=== PATIENT | female | born 1990 | race Two or more races ===

== ENCOUNTER 2023-08-20 11:48 | Emergency (ER) | payer OTHER ==
[~2023-08-20] VITALS: Ht 167.6 cm; Wt 52.6 kg
== END 2023-08-20 15:58 | disposition home or self-care (01) ==
LOC: ER 11:50
DX: S60.212A Contusion of left wrist, initial encounter (principal); W19.XXXA Unspecified fall, initial encounter; Y93.01 Activity, walking, marching and hiking; Y92.488 Other paved roadways as the place of occurrence of the external cause; Y99.8 Other external cause status